=== PATIENT | male | born 1980 | race Caucasian/White ===

== ENCOUNTER 2018-08-04 09:27 | Day surgery (SDC) | payer BC ==
[~2018-08-04] VITALS: Ht 182.9 cm; Wt 80.7 kg
[2018-08-04] VITALS (9 sets, daily range): BP systolic 101–125; BP diastolic 55–79
--- NOTE | 2018-08-04 09:55 | Pre-Procedure Note/Attestation ---
Pre-Procedure Note/Attestation Complete Prior to Procedure Planned Procedure: not applicable Procedure Narrative: Excision and fulguration of anal condyloma, pouchoscopy with biopsies Indications for Procedure Pre-Operative Diagnosis: anal condyloma, J-pouch Attestation I attest that I discussed the nature of the procedure; its benefits; risks and complications; and alternatives (and the risks and benefits of such alternatives ), prior to the procedure, with the patient (or the patient's legal sales and merchandising representative). I attest that, if there was a reasonable possibility of needing a blood transfusion, the patient (or the patient's legal sales and merchandising representative) was given the [facility] standardized written summary, pursuant to the [place] Blood Safety Act ([place] Health and Safety Code # 1645, as amended). I attest that I re-evaluated the patient just prior to the surgery and that there has been no change in the patient's H&P, except as documented below: Katie Lundberg MD Aug 04, 2018 09:55
[2018-08-04] MEDS ORDERED: NKM (10:54)
[2018-08-04] MEDS ORDERED: Dexamethasone 4mg/ml vial ONE (11:44)
[2018-08-04] MEDS ORDERED: Bupivacaine 0.25% Inj 30ml INJ ONE (11:44)
[2018-08-04] MEDS ORDERED: EPINEPHrine 1mg/1ml Amp ONE (11:44)
[2018-08-04] MEDS ORDERED: Acetic Acid 3% Solution 15ml TOPIC ONE (11:45)
[2018-08-04] MEDS ORDERED: Ropivacaine 5mg/ml Vial 30ml INJ ONE ×2 (11:45→12:47)
[2018-08-04] MEDS ORDERED: Sterile Water Irrig 1000ml IRRIG ONE (12:30)
[2018-08-04] MEDS ORDERED: LR 1000ml ONE (12:30)
[2018-08-04] MEDS ORDERED: NS Irrig 1000ml ONE (12:30)
[2018-08-04] MEDS ORDERED: Lidocaine 1% MPF 10mg/ml 5ml ONE (12:35)
[2018-08-04] MEDS ORDERED: Propofol 200mg/20ml IV ONE (12:35)
[2018-08-04] MEDS ORDERED: cefOXitin 1gm Inj ONE (12:35)
[2018-08-04] MEDS ORDERED: LR 1000ml 1,000 ML IVLG SCH (12:58)
[2018-08-04] MEDS ORDERED: Hydromorphone 0.5mg/0.5ml inj IVP PRN (13:00)
[2018-08-04] MEDS ORDERED: Metoclopramide 10mg/2ml Inj IVP PRN (13:00)
[2018-08-04] MEDS ORDERED: Atropine Sulfate 0.4mg/ml inj IVP PRN (13:00)
[2018-08-04] MEDS ORDERED: Midazolam 2mg/2ml Inj IVP PRN (13:00)
[2018-08-04] MEDS ORDERED: oxyCODONE HCL/Acetaminophen 5/325mg ORAL PRN (13:00)
[2018-08-04] MEDS ORDERED: HYDROcodone/Acetamin 7.5/325 tab ORAL PRN (13:00)
[2018-08-04] MEDS ORDERED: fentaNYL 100 mcg/2 mL IV PRN (13:00)
[2018-08-04] MEDS ORDERED: LORazepam Inj 2mg/ml 1ml IV PRN (13:00)
[2018-08-04] MEDS ORDERED: Acetaminophen (Non formulary) 100 ML IV ONE (13:00)
[2018-08-04] MEDS ORDERED: DiphenhydrAMINE 50mg/ml Inj IVP PRN (13:00)
[2018-08-04] MEDS ORDERED: Labetalol 5mg/ml 20ml vial IV PRN (13:00)
[2018-08-04] MEDS ORDERED: HYDROcodone/Acetamin 5/325 tab ORAL PRN (13:00)
[2018-08-04] MEDS ORDERED: Meperidine 50mg/ml Inj(FOR RIGORS ONLY) IVP PRN (13:00)
[2018-08-04] MEDS ORDERED: Ketorolac 30mg Inj IV PRN ×2 (13:00)
--- NOTE | 2018-08-04 13:12 | Anethesia Preoperative Eval ---
Anesthesia Pre-op PMH/ROS General Date of Evaluation: Aug 04, 2018 Time of Evaluation: 12:34 Anesthesiologist: Jose Martin ASA Score: ASA 2 Mallampati Score Class I : Soft palate, uvula, fauces, pillars visible Class II: Soft palate, uvula, fauces visible Class III: Soft palate, base of uvula visible Class IV: Only hard plate visible Mallampati Classification: Class II Surgeon: Toño Diagnosis: Anal Condyloma Surgical Procedure: Excision Anal Condyloma Anesthesia History: none Family History: no anesthesia problems Allergies: Coded Allergies: CORN (Verified Allergy, Severe, 08/04/18) GI PROBLEM-DIARRHEA Coffee (Verified Allergy, Severe, 08/04/18) ACNE EGG (Verified Allergy, Severe, 08/04/18) ACNE GLUTEN (Verified Allergy, Severe, 08/04/18) GI PROBLEM-DIARRHEA,FEVER SESAME SEED (Verified Allergy, Severe, 08/04/18) ACNE Medications: see eMAR Patient NPO?: Yes Past Medical History Gastrointestinal/Genitourinary: Reports: other - Colitis PSxH Narrative: Colectomy Anesthesia Pre-op Phys. Exam Physician Exam Last Vital Signs Date Time Temp Pulse Resp B/P (MAP) Pulse Ox O2 Delivery O2 Flow Rate FiO2 08/04/18 11:10 97.8 63 20 117/60 98 Room Air Constitutional: NAD Neurologic: CN 2-12 intact Cardiovascular: RRR Respiratory: CTA Gastrointestinal: S/NT/ND Airway Exam Mallampati Score: Class II MO: full ROM: full Teeth: intact Anesthesia Pre-op A/P Risk Assessment & Plan Assessment: ASA 2 Plan: TIVA Status Change Before Surgery: No Pre-Antibiotics Dru Gram Cefoxitin IV Given Within 1 Hr of Incision: Yes Time Given: 12:42 Alexsander Philippe MD Aug 04, 2018 13:11
--- NOTE | 2018-08-04 13:18 | Immediate Post-Op Evaluation ---
Immediate Post-Op Evalulation Immediate Post-Op Evalulation Procedure: Excision Anal Condyloma Date of Evaluation: Aug 04, 2018 Time of Evaluation: 13:39 IV Fluids: 800 LR Blood Products: 0 Estimated Blood Loss: 10 Urinary Output: 0 Blood Pressure Systolic: 124 Blood Pressure Diastolic: 73 Pulse Rate: 93 Respiratory Rate: 16 O2 Sat by Pulse Oximetry: 99 Temperature (Fahrenheit): 97.7 Pain Score (1-10): 2 Nausea: No Vomiting: No Complications 0 Patient Status: awake, reacts, patent, none Hydration Status: adequate Dru Gram Cefoxitin Given Within 1 Hr of Incision: Yes Time Given: 12:42 Alexsander Philippe MD Aug 04, 2018 13:18
--- NOTE | 2018-08-04 13:19 | 48 Hour Post Anesthesia Eval ---
Post Anesthesia Evaluation Procedure: Excision Anal Condyloma Date of Evaluation: Aug 04, 2018 Time of Evaluation: 15:43 Blood Pressure Systolic: 125 0: 73 Pulse Rate: 94 Respiratory Rate: 18 Temperature (Fahrenheit): 98.2 O2 Sat by Pulse Oximetry: 98 Airway: patent Nausea: No Vomiting: No Pain Intensity: 2 Hydration Status: adequate Cardiopulmonary Status: Stable Mental Status/LOC: patient returned to baseline Follow-up Care/Observations: 0 Post-Anesthesia Complications: 0 Follow-up care needed: ready to discharge Alexsander Philippe MD Aug 04, 2018 13:19
--- NOTE | 2018-08-04 13:26 | Brief Operative Note ---
Immediate Post Operative Note Operative Note Pre-op Diagnosis: anal condyloma, J-pouch Procedure: Excision and fulguration of anal condyloma, pouchoscopy with biopsies Post-op Diagnosis: same as pre-op Findings: consistent w/pre-op dx studies Surgeon: Katie Lundberg MD Anesthesiologist: Alexsander Philippe MD Anesthesia: moderate sedation Specimen: yes Complications: none Condition: stable Fluids: see anesthesia record Estimated Blood Loss: minimal Drains: none Implant(s) used?: No Katie Lundberg MD Aug 04, 2018 13:26
--- NOTE | 2018-08-04 14:30 | NUR ---
Post dressing soiled with watery stools and small amount of blood. Post op area cleansed and covered with 4x4 dressings . No further bleeding noted. Patient voided without discomfort.
--- NOTE | 2018-08-04 16:30 | Operative Note - Dictated ---
DATE OF OPERATION: 08/04/2018 NOTE: INCOMPLETE DICTATION PREOPERATIVE DIAGNOSIS: History of total colectomy with J-pouch, anal condyloma. POSTOPERATIVE DIAGNOSIS: History of total colectomy with J-pouch, anal condyloma. PROCEDURE: Excision and fulguration of anal condyloma, proctoscopy with biopsies of J-pouch. SURGEON: Katie Lundberg M.D. ANESTHESIOLOGIST: Alexsander Philippe M.D. ANESTHESIA: Propofol sedation with local anesthetic. INDICATION FOR PROCEDURE: The patient is a 38-year-old, male, who was sent to my office by his Katie Lundberg M.D. DR: Sri JOB#: [id number] CC:
--- NOTE | 2018-08-04 17:30 | Operative Note - Dictated ---
DATE OF OPERATION: 08/04/2018 PREOPERATIVE DIAGNOSES: Anal condyloma, history of colitis, status post colectomy with J-pouch. POSTOPERATIVE DIAGNOSES: Anal condyloma, history of colitis, status post colectomy with J-pouch. PROCEDURES: Excision and fulguration of anal condyloma, pouchoscopy with biopsies of J-pouch. SURGEON: Katie Lundberg M.D. ANESTHESIOLOGIST: Alexsander Philippe M.D. ANESTHESIA: Propofol sedation with local anesthetic. INDICATION FOR PROCEDURE: The patient is a 38-year-old male, who was sent to my office by his spring machine operator, Dr. Freida Lazcano for colorectal surgical evaluation of anal condyloma. 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 The patient had a J-pouch, which we have been monitoring with biopsies. The patient also has a history of anal condyloma. His last pouchoscopy with biopsies and excision and fulguration of anal condyloma was on 04/28/2017. In light of the patient's history of recurrence of this condyloma and his history of a J-pouch, it determined at this time to proceed with excision and fulguration of anal condyloma with pouchoscopy and biopsies. DESCRIPTION OF PROCEDURE: Upon consent of the patient, the patient brought to the operating room and placed in the prone sonny-knife position on the operating table. Once adequate sedation established with propofol drip, the patient's buttocks were prepped and draped in the usual standard surgical fashion. A 40 mL of 0.5% ropivacaine with epinephrine mixed with 8 mg of dexamethasone was used as a perianal and pudendal block. A Hill-Short retractor was placed into the anal canal and there was noted to be no stenosis of the anal canal. It was able to admit a moderate-sized retractor. Anal condyloma in the external area were excised and sent off the field as specimen. The anal canal was stained with 2% acetic acid and all areas of staining were electro-fulgurated as well. There was noted to be a moderate amount of external anal condyloma. There was a rectal polyp that was noted in the right lateral rectum, which was also excised and sent off the field as specimen. Olympus colonoscope was advanced into the J-pouch and the efferent limb, was examined and was noted to be some mild amount of inflammation. This was biopsied and sent off the field as specimen. The pouch also was noted to have some moderate pouchitis, which was biopsied and sent off the field as specimen as well. The cuff was noted to have some slight irritation and it was also sent off as separate biopsy. The anal canal was then irrigated and hemostasis confirmed. Sterile dry dressing was used as an outer dressing. Sponge, needle, and instrument counts were correct at the end of the case. The patient was awakened from anesthesia and brought to postanesthesia recovery in stable condition. ESTIMATED BLOOD LOSS: 10 mL. DRAINS: None. SPECIMEN: Rectal polyp, efferent limb biopsy, pouch biopsy, and cuff biopsy. COMPLICATIONS: None. Katie Lundberg M.D. DR: DAXA JOB#: [id number] CC: Katie Lundberg M.D.; Fax#: [phone] Freida Lazcano M.D.
== END 2018-08-04 14:50 | disposition home or self-care (01) ==
LOC: GAS 09:27 → SUR 14:50
DX: A63.0 Anogenital (venereal) warts (principal); Z91.018 Allergy to other foods; Z91.012 Allergy to eggs
CPT/HCPCS: 44386; 46922; J0171; J0694; J1100; J2250; J2704; J2795; 94003; 94150